=== PATIENT | male | born 1950 | race African-American/Black ===

== ENCOUNTER 2017-05-04 18:37 | Inpatient (IN) ==
[2017-05-04] MEDS ORDERED: SODIUM CHLORIDE 0.9% 1,000 ML IV STA (18:58)
[2017-05-04] MEDS ORDERED: HYDROmorphone 2 MG/1 ML VIAL IV STA ×2 (18:58→22:52)
[2017-05-04] MEDS ORDERED: ONDANSETRON 4 MG/2 ML VIAL IV STA (18:58)
[2017-05-04] MEDS ORDERED: ONDANSETRON 4 MG/2 ML VIAL ONE (19:35)
[2017-05-04] MEDS ORDERED: HYDROmorphone 2 MG/1 ML VIAL ONE (19:36)
[2017-05-04 19:41] LABS: Basophils % 0.2 % (0.0-0.8); Hematocrit 33.5 VOL% (42.0-52.0); Hemoglobin 11.8 GM/DL (14.0-18.0); Immature Granulocytes % 0.4 %; Immature Granulocytes Absolute 0.04 #; Lymphocytes # 0.6 10*3/uL (1.4-4.0); Lymphocytes % 6.5 % (21.2-54.2); Mean Corpuscular HGB Conc 35.2 GM/DL (32-36); Mean Corpuscular Hemoglobin 32 PG (27-34); Mean Corpuscular Volume 91.8 FL (87-102); Mean Platelet Volume 8.3 FL (9.6-12.0); Monocytes # 1.1 10*3/uL (0.11-0.8); Monocytes % 11.9 % (1.7-12.7); Neutrophils # 7.6 10*3/uL (1.4-7.4); Platelet Count 195 T/CUMM (130-400); Red Blood Count 3.65 MC/CUMM (3.8-5.5); Red Cell Distribution Width 14.1 % (9.3-17.3); White Blood Count 9.3 T/CUMM (4-12)
[2017-05-04 20:09] LABS: Albumin 3.7 G/DL (3.4-5.0); Bilirubin,Total 0.6 MG/DL (0.2-1.0); Calcium 9.4 MG/DL (8.5-10.1); Osmolality,Calculated 254.2 MOS/KG (273-304); Potassium 3.9 MMOL/L (3.5-5.1); Total Protein 7.2 G/DL (6.4-8.3)
[2017-05-04 22:18] LABS: Apearance,Urine Slightly Hazy (Clear); Bacteria,Urine Few /HPF (Few); Bilirubin,Urine Negative (Negative); Blood, Urine Large mg/dL (Negative); Glucose,Urine (UA) Negative (Negative); Ketones,Urine 5 mg/dL (Negative); Nitrite,Urine Negative (Negative); Protein,Urine 100 MG/DL; RBC,Urine 798 /HPF (0-4); Urine Color Yellow (Yellow); Urine Specific Gravity 1.014 (1.001-1.035); Urine Urobilinogen < 2.0 EU/DL (0.2-1.0)
[2017-05-04] MEDS ORDERED: LEVOFLOXACIN INJ 750 MG in PREMIX 1 EACH IV STA (22:52)
[2017-05-04] MEDS ORDERED: LEVOFLOXACIN INJ 150 ML IV ONE (22:54)
[2017-05-04] MEDS ORDERED: ALBUTEROL 2.5 MG/3 ML NEB RESP TX PRN (23:56)
[2017-05-05] MEDS: SODIUM CHLORIDE 0.9% 1,000 ML IV SCH ×3 (01:07→21:38)
[2017-05-05] MEDS: ACETAMINOPHEN 325 MG TABLET PO PRN ×3 (01:53→21:38)
[2017-05-05] MEDS: ONDANSETRON 4 MG/2 ML VIAL IV PRN ×2 (01:55→09:20)
[2017-05-05 06:50] LABS: Hemoglobin 10.6 GM/DL (14.0-18.0); Immature Granulocytes % 0.1 %; Immature Granulocytes Absolute 0.01 #; Lymphocytes # 0.6 10*3/uL (1.4-4.0); Lymphocytes % 7.6 % (21.2-54.2); Mean Corpuscular HGB Conc 35.3 GM/DL (32-36); Mean Corpuscular Hemoglobin 33 PG (27-34); Mean Platelet Volume 8.8 FL (9.6-12.0); Monocytes % 13.6 % (1.7-12.7); Neutrophils % 78.7 % (38.7-73.9); Platelet Count 200 T/CUMM (130-400); Red Blood Count 3.26 MC/CUMM (3.8-5.5); Red Cell Distribution Width 14.2 % (9.3-17.3); White Blood Count 7.6 T/CUMM (4-12)
[2017-05-05 07:24] LABS: Hypochromasia 2+; Lymphocytes 5 % (20-55); Macrocytosis 1+; Platelet Estimate Adequate; Segmented Neutrophils 85 % (50-85); Total Cells Counted 100
[2017-05-05 07:25] LABS: Albumin 2.8 G/DL (3.4-5.0); Bilirubin,Total 0.8 MG/DL (0.2-1.0); Calcium 8.5 MG/DL (8.5-10.1); Osmolality,Calculated 259.7 MOS/KG (273-304); Polychromasia Slight; Potassium 4.8 MMOL/L (3.5-5.1); Total Protein 6.3 G/DL (6.4-8.3)
[2017-05-05] MEDS: MULTIVITAMIN (CENTRUM) TABLET PO SCH (10:07)
[2017-05-05] MEDS: FAMOTIDINE 20 MG TABLET PO SCH ×2 (10:08→21:38)
[2017-05-05] MEDS: LORATADINE 10 MG TABLET PO SCH (10:09)
[2017-05-05] MEDS ORDERED: LEVOFLOXACIN INJ 500 MG in PREMIX 1 EACH IV SCH (21:00)
[2017-05-06] MEDS: SODIUM CHLORIDE 0.9% 1,000 ML IV SCH ×2 (07:51→16:46)
[2017-05-06] MEDS: MULTIVITAMIN (CENTRUM) TABLET PO SCH (09:39)
[2017-05-06] MEDS: FAMOTIDINE 20 MG TABLET PO SCH ×2 (09:39→20:13)
[2017-05-06] MEDS: LORATADINE 10 MG TABLET PO SCH (09:39)
[2017-05-06] MEDS: ACETAMINOPHEN 325 MG TABLET PO PRN (16:46)
[2017-05-06] MEDS: TAMSULOSIN 0.4 MG CAPSULE PO SCH (20:13)
[2017-05-07] MEDS: SODIUM CHLORIDE 0.9% 1,000 ML IV SCH ×2 (04:43→20:39)
[2017-05-07 06:43] LABS: Basophils % 0.4 % (0.0-0.8); Eosinophils # 0.1 10*3/uL (0.0-0.87); Eosinophils % 1.6 % (0.00-10.9); Hematocrit 30.9 VOL% (42.0-52.0); Hemoglobin 10.4 GM/DL (14.0-18.0); Immature Granulocytes % 0.4 %; Immature Granulocytes Absolute 0.02 #; Lymphocytes # 0.7 10*3/uL (1.4-4.0); Lymphocytes % 15.9 % (21.2-54.2); Mean Corpuscular HGB Conc 33.7 GM/DL (32-36); Mean Corpuscular Hemoglobin 32 PG (27-34); Mean Corpuscular Volume 94.5 FL (87-102); Mean Platelet Volume 8.8 FL (9.6-12.0); Monocytes # 1.2 10*3/uL (0.11-0.8); Monocytes % 27.5 % (1.7-12.7); Neutrophils # 2.4 10*3/uL (1.4-7.4); Neutrophils % 54.2 % (38.7-73.9); Platelet Count 197 T/CUMM (130-400); Red Blood Count 3.27 MC/CUMM (3.8-5.5); Red Cell Distribution Width 14.7 % (9.3-17.3); White Blood Count 4.5 T/CUMM (4-12)
[2017-05-07 07:12] LABS: Calcium 8.3 MG/DL (8.5-10.1); Osmolality,Calculated 270.7 MOS/KG (273-304); Potassium 3.5 MMOL/L (3.5-5.1)
[2017-05-07 07:17] LABS: Eosinophils 1 % (0-10); Giant Platelets Few; Hypochromasia 1+; Lymphocytes 21 % (20-55); Macrocytosis Slight; Ovalocytes Slight; Platelet Estimate Adequate; Segmented Neutrophils 53 % (50-85); Total Cells Counted 100
[2017-05-07] MEDS: MULTIVITAMIN (CENTRUM) TABLET PO SCH (09:12)
[2017-05-07] MEDS: FAMOTIDINE 20 MG TABLET PO SCH ×2 (09:12→20:39)
[2017-05-07] MEDS: LORATADINE 10 MG TABLET PO SCH (09:12)
[2017-05-07] MEDS ORDERED: VANCOMYCIN INJ 1,000 MG in SODIUM CHLORIDE 0.9% 250 ML IV ONE (10:39)
[2017-05-07] MEDS: TAMSULOSIN 0.4 MG CAPSULE PO SCH (20:39)
[2017-05-08] MEDS: SODIUM CHLORIDE 0.9% 1,000 ML IV SCH ×2 (08:55→15:47)
[2017-05-08] MEDS: FAMOTIDINE 20 MG TABLET PO SCH (08:57)
[2017-05-08] MEDS: LORATADINE 10 MG TABLET PO SCH (08:57)
[2017-05-08] MEDS: MULTIVITAMIN (CENTRUM) TABLET PO SCH (08:57)
[2017-05-08 16:04] VITALS: BP 130/73
== END 2017-05-08 18:20 | disposition home or self-care (01) | DRG 690 ==
LOC: N.ED 18:37 → SUATTDRO 23:50 → N.EDINP 23:50 → N.2E 05-05 00:26
PROVIDERS: ADMIT Internal Medicine; ATTEND Hospitalist

== ENCOUNTER 2017-07-10 11:59 | Inpatient (IN) ==
[2017-07-10] MEDS ORDERED: SODIUM CHLORIDE 0.9% 1,000 ML IV STA (12:57)
[2017-07-10 14:35] LABS: Eosinophils % 2.2 % (0.00-10.9); Lymphocytes # 0.3 10*3/uL (1.4-4.0); Lymphocytes % 65.2 % (21.2-54.2); Mean Corpuscular HGB Conc 33.9 GM/DL (32-36); Mean Corpuscular Hemoglobin 29 PG (27-34); Mean Corpuscular Volume 86.5 FL (87-102); Monocytes # 0.1 10*3/uL (0.11-0.8); Monocytes % 19.6 % (1.7-12.7); Neutrophils # 0.1 10*3/uL (1.4-7.4); Red Blood Count 1.26 MC/CUMM (3.8-5.5); Red Cell Distribution Width 13.5 % (9.3-17.3)
[2017-07-10 14:40] LABS: Hematocrit 10.9 VOL% (42.0-52.0); Hemoglobin 3.7 GM/DL (14.0-18.0); Platelet Count 3 T/CUMM (130-400); White Blood Count 0.5 T/CUMM (4-12)
[2017-07-10 14:44] LABS: Albumin 2.9 G/DL (3.4-5.0); Bilirubin,Total 0.4 MG/DL (0.2-1.0); Calcium 8.4 MG/DL (8.5-10.1); Osmolality,Calculated 252.4 MOS/KG (273-304); Potassium 4.1 MMOL/L (3.5-5.1); Total Protein 6.1 G/DL (6.4-8.3)
[2017-07-10] MEDS ORDERED: ONDANSETRON 4 MG/2 ML VIAL IV PRN (15:12)
[2017-07-10] MEDS ORDERED: SODIUM CHLORIDE 0.9% 1,000 ML IV PRN (15:37)
[2017-07-10 16:19] LABS: INR 1.1; PT Patient Result 11.4 SECS; Partial Thromboplastin Time 33.1 SECS (0-40)
[2017-07-10 17:20] LABS: Lymphocytes 100 % (20-55)
[2017-07-10 17:21] LABS: Hypochromasia 1+; Microcytosis 1+; Platelet Estimate Decreased; Total Cells Counted 100
[2017-07-10 17:46] LABS: Apearance,Urine Slightly Hazy (Clear); Bilirubin,Urine Negative (Negative); Blood, Urine Large mg/dL (Negative); Glucose,Urine (UA) 50 mg/dL (Negative); Ketones,Urine Negative (Negative); Nitrite,Urine Negative (Negative); Protein,Urine >=500 MG/DL; RBC,Urine 6126 /HPF (0-4); Urine Color Red (Yellow); Urine Specific Gravity 1.009 (1.001-1.035); Urine Urobilinogen < 2.0 EU/DL (0.2-1.0); WBC,Urine 39 /HPF (0-6)
[2017-07-10] MEDS: SODIUM CHLORIDE 0.9% 1,000 ML IV SCH (18:10)
[2017-07-10] MEDS ORDERED: ALBUTEROL 2.5 MG/3 ML NEB RESP TX PRN (19:00)
[2017-07-10] MEDS: ACETAMINOPHEN 325 MG TABLET PO PRN (21:17)
[2017-07-10] MEDS: TAMSULOSIN 0.4 MG CAPSULE PO SCH (21:19)
[2017-07-10] MEDS: FAMOTIDINE 20 MG TABLET PO SCH (21:19)
[2017-07-10] MEDS: IRON PO SCH (21:24)
[2017-07-10] MEDS: MULTIVIT MIN36 PO SCH (21:24)
[2017-07-10] MEDS: FOLIC ACID PO SCH (21:24)
[2017-07-10] MEDS: BUDESONIDE/FORMOTEROL 160-4.5 INHALER 6 GM INH SCH (21:37)
[2017-07-11] MEDS: SODIUM CHLORIDE 0.9% 1,000 ML IV SCH ×3 (01:53→16:34)
[2017-07-11 05:56] LABS: Albumin 2.4 G/DL (3.4-5.0); Bilirubin,Total 1.4 MG/DL (0.2-1.0); Calcium 7.9 MG/DL (8.5-10.1); Osmolality,Calculated 255.9 MOS/KG (273-304); Potassium 3.7 MMOL/L (3.5-5.1); Total Protein 5.4 G/DL (6.4-8.3)
[2017-07-11 08:35] LABS: Hematocrit 19.1 VOL% (42.0-52.0); Hemoglobin 6.7 GM/DL (14.0-18.0)
[2017-07-11 08:46] LABS: Hematocrit 19.5 VOL% (42.0-52.0); Hemoglobin 6.7 GM/DL (14.0-18.0); Lymphocytes # 0.2 10*3/uL (1.4-4.0); Mean Corpuscular HGB Conc 34.4 GM/DL (32-36); Mean Corpuscular Hemoglobin 30 PG (27-34); Mean Corpuscular Volume 87.1 FL (87-102); Mean Platelet Volume 9.2 FL (9.6-12.0); Monocytes # 0.1 10*3/uL (0.11-0.8); Neutrophils # 0.1 10*3/uL (1.4-7.4); Platelet Count 60 T/CUMM (130-400); Red Blood Count 2.24 MC/CUMM (3.8-5.5); Red Cell Distribution Width 13.5 % (9.3-17.3)
[2017-07-11 08:49] LABS: White Blood Count 0.4 T/CUMM (4-12)
[2017-07-11 09:07] LABS: Hypochromasia 1+; Lymphocytes 70 % (20-55); Microcytosis 1+; Ovalocytes Slight; Platelet Estimate Decreased; Segmented Neutrophils 25 % (50-85); Total Cells Counted 100
[2017-07-11] MEDS: FAMOTIDINE 20 MG TABLET PO SCH ×2 (09:35→21:59)
[2017-07-11] MEDS: MULTIVITAMIN (CENTRUM) TABLET PO SCH (09:35)
[2017-07-11] MEDS: FILGRASTIM-SNDZ 300 MCG/0.5 ML SYRINGE SUBCUT SCH (09:36)
[2017-07-11] MEDS: PANTOPRAZOLE 40 MG TABLET PO SCH (09:36)
[2017-07-11] MEDS: CETIRIZINE 10 MG TABLET PO SCH (09:36)
[2017-07-11] MEDS: BUDESONIDE/FORMOTEROL 160-4.5 INHALER 6 GM INH SCH ×2 (09:40→22:02)
[2017-07-11] MEDS ORDERED: SODIUM CHLORIDE 0.9% 1,000 ML IV PRN (11:31)
[2017-07-11] MEDS: ACETAMINOPHEN 325 MG TABLET PO PRN (16:39)
[2017-07-11] MEDS: MIRTAZAPINE 15 MG TABLET PO SCH (22:00)
[2017-07-11] MEDS: IRON PO SCH (22:01)
[2017-07-11] MEDS: FOLIC ACID PO SCH (22:01)
[2017-07-11] MEDS: MULTIVIT MIN36 PO SCH (22:01)
[2017-07-11] MEDS: TAMSULOSIN 0.4 MG CAPSULE PO SCH (22:01)
[2017-07-12] MEDS: SODIUM CHLORIDE 0.9% 1,000 ML IV SCH ×3 (05:35→20:59)
[2017-07-12 07:22] LABS: Eosinophils % 2.4 % (0.00-10.9); Hematocrit 25.5 VOL% (42.0-52.0); Hemoglobin 8.9 GM/DL (14.0-18.0); Immature Granulocytes % 7.3 %; Immature Granulocytes Absolute 0.06 #; Lymphocytes # 0.3 10*3/uL (1.4-4.0); Lymphocytes % 40.2 % (21.2-54.2); Mean Corpuscular HGB Conc 34.9 GM/DL (32-36); Mean Corpuscular Hemoglobin 30 PG (27-34); Mean Corpuscular Volume 86.4 FL (87-102); Mean Platelet Volume 9.7 FL (9.6-12.0); Monocytes # 0.2 10*3/uL (0.11-0.8); NRBC # 0.02 10*3/uL; Neutrophils # 0.2 10*3/uL (1.4-7.4); Neutrophils % 22.1 % (38.7-73.9); Red Blood Count 2.95 MC/CUMM (3.8-5.5); Red Cell Distribution Width 13.6 % (9.3-17.3)
[2017-07-12 07:28] LABS: Platelet Count 43 T/CUMM (130-400); White Blood Count 0.8 T/CUMM (4-12)
[2017-07-12 07:44] LABS: Band Neutrophils 10 % (0-10); Eosinophils 10 % (0-10); Hypochromasia 1+; Lymphocytes 60 % (20-55); Microcytosis 1+; Segmented Neutrophils 20 % (50-85); Total Cells Counted 100
[2017-07-12 07:45] LABS: Platelet Estimate Decreased
[2017-07-12 07:53] LABS: Calcium 7.4 MG/DL (8.5-10.1); Osmolality,Calculated 266.1 MOS/KG (273-304); Potassium 3.9 MMOL/L (3.5-5.1)
[2017-07-12] MEDS: PANTOPRAZOLE 40 MG TABLET PO SCH (09:41)
[2017-07-12] MEDS: CETIRIZINE 10 MG TABLET PO SCH (09:41)
[2017-07-12] MEDS: FAMOTIDINE 20 MG TABLET PO SCH ×2 (09:41→21:00)
[2017-07-12] MEDS: MULTIVITAMIN (CENTRUM) TABLET PO SCH (09:41)
[2017-07-12] MEDS: BUDESONIDE/FORMOTEROL 160-4.5 INHALER 6 GM INH SCH ×2 (09:42→21:02)
[2017-07-12] MEDS: FILGRASTIM-SNDZ 300 MCG/0.5 ML SYRINGE SUBCUT SCH (10:44)
[2017-07-12] MEDS: MIRTAZAPINE 15 MG TABLET PO SCH (21:00)
[2017-07-12] MEDS: TAMSULOSIN 0.4 MG CAPSULE PO SCH (21:00)
[2017-07-12] MEDS: IRON PO SCH (21:01)
[2017-07-12] MEDS: FOLIC ACID PO SCH (21:01)
[2017-07-12] MEDS: MULTIVIT MIN36 PO SCH (21:01)
[2017-07-13] MEDS: SODIUM CHLORIDE 0.9% 1,000 ML IV SCH ×3 (05:08→22:05)
[2017-07-13 05:44] LABS: Eosinophils % 0.8 % (0.00-10.9); Hematocrit 24.8 VOL% (42.0-52.0); Hemoglobin 8.5 GM/DL (14.0-18.0); Immature Granulocytes % 6.3 %; Immature Granulocytes Absolute 0.08 #; Lymphocytes # 0.4 10*3/uL (1.4-4.0); Lymphocytes % 33.1 % (21.2-54.2); Mean Corpuscular HGB Conc 34.3 GM/DL (32-36); Mean Corpuscular Hemoglobin 30 PG (27-34); Mean Corpuscular Volume 88.6 FL (87-102); Mean Platelet Volume 9.7 FL (9.6-12.0); Monocytes # 0.5 10*3/uL (0.11-0.8); Monocytes % 35.4 % (1.7-12.7); Neutrophils # 0.3 10*3/uL (1.4-7.4); Neutrophils % 24.4 % (38.7-73.9); Red Cell Distribution Width 13.6 % (9.3-17.3)
[2017-07-13 06:04] LABS: Platelet Count 34 T/CUMM (130-400); White Blood Count 1.3 T/CUMM (4-12)
[2017-07-13 06:20] LABS: Calcium 7.9 MG/DL (8.5-10.1); Magnesium 1.9 MG/DL (1.8-2.4); Osmolality,Calculated 269.8 MOS/KG (273-304); Potassium 3.7 MMOL/L (3.5-5.1)
[2017-07-13 06:23] LABS: Band Neutrophils 9 % (0-10); Eosinophils 4 % (0-10); Lymphocytes 32 % (20-55); Metamyelocytes 4 %; Nucleated Red Blood Cells 1 (0-5); Platelet Estimate Decreased; Segmented Neutrophils 18 % (50-85); Total Cells Counted 102
[2017-07-13 06:24] LABS: Anisocytosis Slight; Hypochromasia 1+; Macrocytosis Slight; Ovalocytes Few; Target Cells Few
[2017-07-13] MEDS ORDERED: SODIUM CHLORIDE 0.9% 1,000 ML IV PRN (07:58)
[2017-07-13] MEDS: FAMOTIDINE 20 MG TABLET PO SCH ×2 (09:46→21:07)
[2017-07-13] MEDS: CETIRIZINE 10 MG TABLET PO SCH (09:46)
[2017-07-13] MEDS: FILGRASTIM-SNDZ 300 MCG/0.5 ML SYRINGE SUBCUT SCH (09:46)
[2017-07-13] MEDS: MULTIVITAMIN (CENTRUM) TABLET PO SCH (09:46)
[2017-07-13] MEDS: BUDESONIDE/FORMOTEROL 160-4.5 INHALER 6 GM INH SCH ×2 (09:46→21:06)
[2017-07-13] MEDS: PANTOPRAZOLE 40 MG TABLET PO SCH (09:46)
[2017-07-13 19:11] LABS: Apearance,Urine CLEAR (Clear); Bacteria,Urine Occasional /HPF (Few); Bilirubin,Urine Negative (Negative); Blood, Urine Large mg/dL (Negative); Glucose,Urine (UA) Negative (Negative); Ketones,Urine Negative (Negative); Nitrite,Urine Negative (Negative); Protein,Urine 30 MG/DL; RBC,Urine 403 /HPF (0-4); Urine Color Red (Yellow); Urine Specific Gravity 1.003 (1.001-1.035); Urine Urobilinogen < 2.0 EU/DL (0.2-1.0); WBC,Urine 13 /HPF (0-6)
[2017-07-13] MEDS: TAMSULOSIN 0.4 MG CAPSULE PO SCH (21:06)
[2017-07-13] MEDS: MIRTAZAPINE 15 MG TABLET PO SCH (21:07)
[2017-07-13] MEDS: IRON PO SCH (21:09)
[2017-07-13] MEDS: MULTIVIT MIN36 PO SCH (21:09)
[2017-07-13] MEDS: FOLIC ACID PO SCH (21:09)
[2017-07-14 03:33] LABS: Basophils % 0.5 % (0.0-0.8); Eosinophils % 1.1 % (0.00-10.9); Hematocrit 24.1 VOL% (42.0-52.0); Hemoglobin 8.1 GM/DL (14.0-18.0); Immature Granulocytes % 0.5 %; Immature Granulocytes Absolute 0.01 #; Lymphocytes # 0.4 10*3/uL (1.4-4.0); Lymphocytes % 19.7 % (21.2-54.2); Mean Corpuscular HGB Conc 33.6 GM/DL (32-36); Mean Corpuscular Hemoglobin 31 PG (27-34); Mean Corpuscular Volume 92.7 FL (87-102); Mean Platelet Volume 10.7 FL (9.6-12.0); Monocytes # 0.8 10*3/uL (0.11-0.8); Monocytes % 42.6 % (1.7-12.7); NRBC # 0.03 10*3/uL; Neutrophils # 0.7 10*3/uL (1.4-7.4); Neutrophils % 35.6 % (38.7-73.9); Platelet Count 69 T/CUMM (130-400); Red Cell Distribution Width 13.8 % (9.3-17.3); White Blood Count 1.9 T/CUMM (4-12)
[2017-07-14 04:13] LABS: Calcium 7.7 MG/DL (8.5-10.1); Magnesium 1.8 MG/DL (1.8-2.4); Osmolality,Calculated 272.7 MOS/KG (273-304); Potassium 3.6 MMOL/L (3.5-5.1)
[2017-07-14 05:05] LABS: Eosinophils 1 % (0-10); Hypochromasia 1+; Lymphocytes 25 % (20-55); Microcytosis Slight; Ovalocytes Slight; Platelet Estimate Decreased; Segmented Neutrophils 32 % (50-85); Total Cells Counted 100
[2017-07-14] MEDS: SODIUM CHLORIDE 0.9% 1,000 ML IV SCH ×2 (06:10→15:02)
[2017-07-14] MEDS: CETIRIZINE 10 MG TABLET PO SCH (08:53)
[2017-07-14] MEDS: PANTOPRAZOLE 40 MG TABLET PO SCH (08:53)
[2017-07-14] MEDS: FILGRASTIM-SNDZ 300 MCG/0.5 ML SYRINGE SUBCUT SCH (08:53)
[2017-07-14] MEDS: BUDESONIDE/FORMOTEROL 160-4.5 INHALER 6 GM INH SCH ×2 (08:53→20:42)
[2017-07-14] MEDS: MULTIVITAMIN (CENTRUM) TABLET PO SCH (08:53)
[2017-07-14] MEDS: FAMOTIDINE 20 MG TABLET PO SCH ×2 (08:53→20:34)
[2017-07-14] MEDS: TAMSULOSIN 0.4 MG CAPSULE PO SCH (20:33)
[2017-07-14] MEDS: MIRTAZAPINE 15 MG TABLET PO SCH (20:34)
[2017-07-14] MEDS: FOLIC ACID PO SCH (20:42)
[2017-07-14] MEDS: IRON PO SCH (20:42)
[2017-07-14] MEDS: MULTIVIT MIN36 PO SCH (20:42)
[2017-07-15 05:50] LABS: Basophils # 0.1 10*3/uL (0.0-0.2); Basophils % 0.9 % (0.0-0.8); Eosinophils % 0.2 % (0.00-10.9); Hematocrit 24.7 VOL% (42.0-52.0); Hemoglobin 8.5 GM/DL (14.0-18.0); Immature Granulocytes Absolute 0.66 #; Lymphocytes # 0.5 10*3/uL (1.4-4.0); Lymphocytes % 9.6 % (21.2-54.2); Mean Corpuscular HGB Conc 34.4 GM/DL (32-36); Mean Corpuscular Hemoglobin 31 PG (27-34); Mean Corpuscular Volume 90.1 FL (87-102); Mean Platelet Volume 10.5 FL (9.6-12.0); Monocytes % 36.4 % (1.7-12.7); NRBC # 0.05 10*3/uL; Neutrophils # 2.3 10*3/uL (1.4-7.4); Neutrophils % 40.9 % (38.7-73.9); Platelet Count 61 T/CUMM (130-400); Red Blood Count 2.74 MC/CUMM (3.8-5.5); Red Cell Distribution Width 13.8 % (9.3-17.3); White Blood Count 5.5 T/CUMM (4-12)
[2017-07-15] MEDS: SODIUM CHLORIDE 0.9% 1,000 ML IV SCH ×3 (06:35→13:26)
[2017-07-15 06:45] LABS: Calcium 8.1 MG/DL (8.5-10.1); Osmolality,Calculated 278.3 MOS/KG (273-304); Potassium 3.5 MMOL/L (3.5-5.1)
[2017-07-15 07:51] LABS: Band Neutrophils 37 % (0-10); Dohle Bodies Few; Lymphocytes 13 % (20-55); Myelocytes 2 %; Segmented Neutrophils 23 % (50-85); Total Cells Counted 100; Toxic Granulation 2+
[2017-07-15 07:52] LABS: Hypochromasia 2+; Platelet Estimate Decreased
[2017-07-15] MEDS: CETIRIZINE 10 MG TABLET PO SCH (08:54)
[2017-07-15] MEDS: PANTOPRAZOLE 40 MG TABLET PO SCH (08:54)
[2017-07-15] MEDS: FILGRASTIM-SNDZ 300 MCG/0.5 ML SYRINGE SUBCUT SCH (08:54)
[2017-07-15] MEDS: FAMOTIDINE 20 MG TABLET PO SCH (08:55)
[2017-07-15] MEDS: BUDESONIDE/FORMOTEROL 160-4.5 INHALER 6 GM INH SCH (08:55)
[2017-07-15] MEDS: MULTIVITAMIN (CENTRUM) TABLET PO SCH (08:55)
[2017-07-15 17:34] VITALS: BP 145/75
== END 2017-07-15 16:08 | disposition home or self-care (01) | DRG 809 ==
LOC: N.ED 11:59 → SUATTDRO 15:12 → N.EDINP 15:12 → N.4E 17:17
PROVIDERS: ADMIT Internal Medicine; ATTEND Hospitalist

== ENCOUNTER 2018-02-05 00:01 | Inpatient (IN) ==
[2018-02-07 08:37] VITALS: BP 102/61
== END 2018-02-07 17:01 | disposition hospice, home (50) | DRG 190 ==
LOC: EDUNIT# → EDBD → N.ED 00:01 → N.EDINP 05:14 → N.5E 05:42